=== PATIENT | male | born 1990 | race Caucasian/White ===

== ENCOUNTER 2018-09-28 20:23 | Emergency (ER) | payer BC, OTHER ==
[~2018-09-28 20:23] MED LIST: ESOM40CA42 PO; NO; VALTREX PO
--- NOTE | 2018-09-28 20:33 | ER Report ---
History and Physical Time Seen By MD: 20:33 Hx. of Stated Complaint: PATIENT REPORTS ALLERGIC REACTION STARTING 15 MINUTES PRIOR WHILE AT A TAFT HPI/ROS CHIEF COMPLAINT: Allergic reaction HISTORY OF PRESENT ILLNESS: This is a 28 year old male. Was at the hood for about 15 minutes. Tight throat with some trouble breathing, red skin rash, itching. No prior allergic reaction. No chest pain. Allergies: Coded Allergies: No Known Drug Allergies (Unverified , 09/28/18) Home Meds Active Scripts Prednisone (PREDNISONE) 20 Mg Tablet, 40 MG PO QDAY, #4 TAB 0 Refills Prov:CORBIN BONNER MD 09/28/18 Reported Medications [Valtrex] No Conflict Check, PO DAILY PRN 04/24/12 Discontinued Reported Medications Esomeprazole Mag Trihydrate (Nexium) 40 Mg Capsule.dr, 40 MG PO QDAY 04/25/12 Reviewed Nurses Notes: Yes Constitutional Vital Sign - Last 24 Hours 09/28/18 09/28/18 09/28/18 09/28/18 20:25 20:25 20:53 21:23 Temp 97.4 Pulse 89 87 74 Resp 17 B/P (MAP) 150/102 150/102 (118) Pulse Ox 90 91 92 O2 Delivery Room Air 09/28/18 09/28/18 09/28/18 21:28 21:38 21:57 Pulse 72 B/P (MAP) 140/54 (82) 137/71 (93) Pulse Ox 91 Intake and Output 09/28/18 09/28/18 09/29/18 15:00 23:00 07:00 Intake Total 1050 ml Balance 1050 ml Physical Exam General: Alert. ENT: normal mucous membranes, no swelling of tongue, lips, throat seen. Respiratory: Lungs are clear. Skin: Red diffuse macular rash. Medical Decision Making ED Course/Re-evaluation Clinical Indication for ER IV: Hydration, IV Access ED Course Solu-medrol 125mg IV, Benadryl 50mg IV, Pepcid 20mg IV, 1000ml NS IV. Patient felt better on re-evaluation. Home with Prednisone and prn benadryl. Decision to Disposition Date: Sep 28, 2018 Decision to Disposition Time: 21:58 Depart Departure Latest Vital Signs Vital Signs Date Time Temp Pulse Resp B/P (MAP) Pulse Ox O2 Delivery O2 Flow Rate FiO2 09/28/18 21:57 137/71 (93) 09/28/18 21:28 72 91 09/28/18 20:25 97.4 17 Room Air Impression: Primary Impression: Allergic reaction Condition: Improved Disposition: HOME OR SELF-CARE Referrals: NATY HAYWARD MD (PCP) New Scripts Prednisone (PREDNISONE) 20 Mg Tablet 40 MG PO QDAY, #4 TAB 0 Refills Prov: CORBIN BONNER MD 09/28/18 Patient Instructions: General Allergic Reaction (ED) Additional Instructions: Take Prednisone 20mg tablets, two tablets once a day for 48 hours. Take Benadryl 25mg over the counter tablets, take 1 tablet every 6 hours as needed for itching, rash, allergic reaction symptoms. Problem Qualifiers Primary Impression: Allergic reaction Encounter type: initial encounter Qualified Codes: T78.40XA - Allergy, unspecified, initial encounter CORBIN BONNER MD Sep 28, 2018 20:33
[2018-09-28] MEDS ORDERED: NS(*) 0.9% 1000 ML BAG 1,000 ML IV ONE (20:40)
[2018-09-28] MEDS ORDERED: diphenhydrAMINE 50 MG/ML VIAL IVP ONE (20:40)
[2018-09-28] MEDS ORDERED: FAMOTIDINE(*) 20MG/50ML PREMIX 50 ML IVPB ONE (20:40)
[2018-09-28] MEDS ORDERED: methylPREDNIS SUCC 125 MG/2ML IVP ONE (20:40)
[2018-09-28 21:57] VITALS: BP 137/71
[2018-09-28] MEDS ORDERED: PRED20TA6 PO (22:00)
[2018-09-28] MEDS ORDERED: predniSONE 20 MG TAB PO ONE (22:00)
== END 2018-09-28 22:11 | disposition home or self-care (01) ==
LOC: ER 20:34
DX: T78.40XA Allergy, unspecified, initial encounter (principal)
CPT/HCPCS: 96361; 96365; 96375; 99284; J1200; J2930; J7030; J7512